=== PATIENT | male | born 1935 | race Hispanic/Latino ===

== ENCOUNTER 2018-01-09 17:44 | Emergency (ER) | payer OTHER ==
[~2018-01-09 17:44] MED LIST: ALLO100T PO; ATOR40TA71 PO; GLIM4TAB3 PO; LEVO88TA7 PO; LORA0.5T2 PO; LOSA50TA37 PO; METO-391 PO; OXYB5TAB10 PO; POTA-79 PO; PREG75 PO; SPIR25TA4 PO; TAMS0.4C32 PO; TORS20TA4 PO
[2018-01-09 18:06] LABS: BASOPHILS % (AUTO) 0.9 % (0.0-5.0); EOSINOPHILS % (AUTO) 1.1 % (0.0-8.0); HEMATOCRIT 41.8 % (42-54); LYMPHOCYTES % (AUTO) 34.7 % (21.0-51.0); MEAN CORPUSCULAR HEMOGLOBIN 29.4 pg (27.0-33.0); MEAN CORPUSCULAR VOLUME 86.3 fL (79-99); MONOCYTES % (AUTO) 9.8 % (3.0-13.0); NEUTROPHILS % (AUTO) 53.5 % (40.0-77.0); PLATELET COUNT (AUTO) 257 K/uL (130-400); RED BLOOD CELL COUNT(AUTO) 4.84 MIL/uL (4.50-6.20); RED CELL DISTRIBUTION WIDTH 15.6 % (11.0-15.5); WHITE BLOOD COUNT (AUTO) 10.9 K/uL (4.8-10.8)
[2018-01-09 18:17] LABS: CREATININE 1.1 mg/dL (0.5-1.5)
[2018-01-09 18:19] LABS: INR 1.05 (0.85-1.15); PARTIAL THROMBOPLASTIN TIME 28.6 SEC (26.3-35.5)
[2018-01-09 18:32] LABS: ALBUMIN 3.4 g/dL (3.5-5.0); BILIRUBIN,TOTAL 0.9 mg/dL (0.2-1.0); CREATINE KINASE MB 1.5 ng/mL (0.5-3.6); TOTAL PROTEIN, SERUM 8.3 g/dL (6.0-8.3)
[2018-01-09] MEDS ORDERED: IOPAMIDOL-370 75 ML VIAL IV ONE (18:33)
[2018-01-09 19:38] LABS: APPEARANCE,URINE Clear (CLEAR); BILIRUBIN,URINE Negative (NEGATIVE); COLOR,URINE Yellow (YELLOW); GLUCOSE, URINE (UA) Negative (NEGATIVE); KETONES,URINE 15 mg/dL (NEGATIVE); LEUKOCYTE ESTERASE ,URINE Negative (NEGATIVE); NITRATE,URINE Negative (NEGATIVE); OCCULT BLOOD,URINE Trace (NEGATIVE); PH,URINE 6.5 (5.0-8.0); PROTEIN,URINE 300 (NEGATIVE)
[2018-01-09 20:04] LABS: BACTERIA,URINE Rare /HPF (None Seen); RBC,URINE 0-1 /HPF (0-1); WBC,URINE None Seen /HPF (0-1); YEAST,URINE BUDDING None Seen /HPF (None Seen)
[2018-01-09] MEDS ORDERED: SODIUM CHLORIDE 0.9% 1000ML 1,000 ML IV ONE (20:04)
[2018-01-09 20:05] LABS: MUCUS,URINE Few LPF (None Seen); SQUAMOUS EPITHELIAL CELL,UR Rare /LPF (0-2)
== END 2018-01-09 22:05 | disposition home or self-care (01) ==
LOC: EDH 17:44
DX: R10.9 Unspecified abdominal pain (principal); R53.1 Weakness; I10 Essential (primary) hypertension; E11.9 Type 2 diabetes mellitus without complications; I25.10 Atherosclerotic heart disease of native coronary artery without angina pectoris; Z95.1 Presence of aortocoronary bypass graft; Z98.890 Other specified postprocedural states
CPT/HCPCS: 36415; 71045; 74177; 80053; 81001; 82550; 82553; 83874; 84484; 85025; 85610; 85730; 93005; 94761; 96360; 99285; J7030; Q9967

== ENCOUNTER → 2018-02-28 | Outpatient (CLI) | payer OTHER ==
[~2018-02-28] MED LIST changes: -SPIR25TA4 PO; +SPIR25TA6 PO
== END | disposition home or self-care (01) ==
LOC: RAH 08:41
PROVIDERS: ATTEND Internal Medicine
DX: K80.20 Calculus of gallbladder without cholecystitis without obstruction (principal); N28.1 Cyst of kidney, acquired; Z95.828 Presence of other vascular implants and grafts
CPT/HCPCS: 76700; 78264; A9541

== ENCOUNTER 2018-11-15 05:30 | Day surgery (SDC) | payer OTHER ==
[~2018-11-15] VITALS: Ht 162.6 cm; Wt 79.9 kg
[~2018-11-15 05:30] MED LIST changes: +BISA1POW MC; +ERGO500014 PO; +ESOM40CA54 PO; +FISH1CAP49 PO; +HYDR-4381 PO; -LOSA50TA37 PO; +LOSA50TA64 PO; +NAPR220C15 PO; -POTA-79 PO; -PREG75 PO; +SUCR1TAB2 PO
[2018-11-15] MEDS ORDERED: SODIUM CHLORIDE 0.9% 1000ML 1,000 ML IV ONE (05:51)
[2018-11-15 06:21] VITALS: BP 117/65
[2018-11-15] MEDS ORDERED: PROPOFOL 10 MG/ML 20ML VIAL IV ONE (07:16)
[2018-11-15 07:31] VITALS: BP 124/67
[2018-11-15 07:37] VITALS: BP 128/65
[2018-11-15 07:42] VITALS: BP 113/57
[2018-11-15 07:48] VITALS: BP 116/60
== END 2018-11-15 08:05 | disposition home or self-care (01) ==
LOC: ENDO 05:30 → DAH 05:30 → ENDO 08:05
PROVIDERS: ATTEND Internal Medicine
DX: K29.50 Unspecified chronic gastritis without bleeding (principal); I10 Essential (primary) hypertension; E78.00 Pure hypercholesterolemia, unspecified; I25.10 Atherosclerotic heart disease of native coronary artery without angina pectoris; F41.9 Anxiety disorder, unspecified; F32.9 Major depressive disorder, single episode, unspecified; E11.9 Type 2 diabetes mellitus without complications; Z95.5 Presence of coronary angioplasty implant and graft; Z98.890 Other specified postprocedural states; Z79.899 Other long term (current) drug therapy; Z68.29 Body mass index [BMI] 29.0-29.9, adult; K59.04 Chronic idiopathic constipation; I48.91 Unspecified atrial fibrillation
CPT/HCPCS: 43239; 82948; 88305; 93005; A4606; J2704; J7030

== ENCOUNTER 2018-12-22 05:30 | Day surgery (SDC) | payer OTHER ==
[2018-12-22] VITALS (8 sets, daily range): BP systolic 90–117; BP diastolic 50–63
[~2018-12-22] VITALS: Ht 160 cm; Wt 75.7 kg
[~2018-12-22 05:30] MED LIST changes: -BISA1POW MC; -ESOM40CA54 PO; -FISH1CAP49 PO; +LOVA20TA3 PO; -NAPR220C15 PO; -SPIR25TA6 PO
[2018-12-22] MEDS ORDERED: SODIUM CHLORIDE 0.9% 1000ML 1,000 ML IV ONE (05:52)
--- NOTE | 2018-12-22 07:14 | NUR ---
PATIENT IS HARD OF HEARING. Addendum: 12/22/18 at 0714 by CRESCENCIO FOX RN RN Amended: Links added.
[2018-12-22] MEDS ORDERED: GLYCOPYRROLATE 0.2 MG/ML 5 ML VIAL ONE (08:38)
--- NOTE | 2018-12-22 09:06 | NUR ---
Update Patient's glucose level was 74mg/dl. Patient was given a four ounce apple juice and a packet of saltine crackers that were consumed. Patient denies diaphoresis, nausea, or dizziness.
--- NOTE | 2018-12-22 09:58 | NUR ---
update Patient states he has abdominal discomfort from bloating. Addendum: 12/22/18 at 0931 by CRESCENCIO FOX RN RN Amended: Links added.
== END 2018-12-22 09:46 | disposition home or self-care (01) ==
LOC: ENDO 05:30 → DAH 05:30 → ENDO 09:46
PROVIDERS: ATTEND Internal Medicine Gastroenterology
DX: D12.3 Benign neoplasm of transverse colon (principal); D12.0 Benign neoplasm of cecum; D12.5 Benign neoplasm of sigmoid colon; K57.30 Diverticulosis of large intestine without perforation or abscess without bleeding; I10 Essential (primary) hypertension; E78.00 Pure hypercholesterolemia, unspecified; I25.10 Atherosclerotic heart disease of native coronary artery without angina pectoris; F41.9 Anxiety disorder, unspecified; F32.9 Major depressive disorder, single episode, unspecified; E11.9 Type 2 diabetes mellitus without complications; Z95.5 Presence of coronary angioplasty implant and graft; Z79.899 Other long term (current) drug therapy; Z98.890 Other specified postprocedural states; K29.50 Unspecified chronic gastritis without bleeding; K21.0 Gastro-esophageal reflux disease with esophagitis; Z95.1 Presence of aortocoronary bypass graft; I21.3 ST elevation (STEMI) myocardial infarction of unspecified site
CPT/HCPCS: 45385; 82948; 88305; 93005; A4606; J3490; J7030

== ENCOUNTER → 2019-04-18 | Outpatient (CLI) | payer OTHER ==
[~2019-04-18] MED LIST changes: -ATOR40TA71 PO
== END | disposition home or self-care (01) ==
LOC: SHCH 10:46
PROVIDERS: ATTEND Internal Medicine Cardiovascular Disease
DX: I08.3 Combined rheumatic disorders of mitral, aortic and tricuspid valves (principal); I11.9 Hypertensive heart disease without heart failure; I48.2 Chronic atrial fibrillation
CPT/HCPCS: 93306

== ENCOUNTER 2019-04-20 14:33 | Emergency (ER) | payer OTHER ==
[2019-04-20 15:40] LABS: EOSINOPHILS % (AUTO) 0.8 % (0.0-8.0); HEMATOCRIT 43.5 % (42-54); LYMPHOCYTES % (AUTO) 19.9 % (21.0-51.0); MEAN CORPUSCULAR HGB CONC 33.1 g/dL (32.0-36.0); MEAN CORPUSCULAR VOLUME 90.6 fL (79-99); MONOCYTES % (AUTO) 8.5 % (3.0-13.0); NEUTROPHILS % (AUTO) 69.8 % (40.0-77.0); PLATELET COUNT (AUTO) 231 K/uL (130-400); RED CELL DISTRIBUTION WIDTH 15.9 % (11.0-15.5); WHITE BLOOD COUNT (AUTO) 10.3 K/uL (4.8-10.8)
[2019-04-20 15:54] LABS: CREATININE 1.2 mg/dL (0.5-1.5); POTASSIUM 3.4 mmol/L (3.5-5.1)
[2019-04-20 15:56] LABS: INR 0.99 (0.85-1.15); PARTIAL THROMBOPLASTIN TIME 28.6 SEC (26.3-35.5); PROTHROMBIN TIME 10.4 SEC (9.6-11.6)
[2019-04-20 16:00] LABS: BILIRUBIN,TOTAL 0.8 mg/dL (0.2-1.0); TOTAL PROTEIN, SERUM 7.1 g/dL (6.0-8.3)
[2019-04-20] MEDS ORDERED: IOHEXOL-350 75 ML VIAL IV ONE (16:04)
[2019-04-20] MEDS ORDERED: SODIUM CHLORIDE 0.9% 1000ML 1,000 ML IV ONE (16:08)
[2019-04-20] MEDS ORDERED: ONDANSETRON HCL 4 MG/2 ML VIAL ONE (17:51)
[2019-04-20] MEDS ORDERED: KETOROLAC TROMETHAMINE 15MG/ML ONE (17:51)
== END 2019-04-20 19:02 | disposition home or self-care (01) ==
LOC: EDH 14:33
DX: K80.20 Calculus of gallbladder without cholecystitis without obstruction (principal); R42 Dizziness and giddiness; I10 Essential (primary) hypertension; E11.9 Type 2 diabetes mellitus without complications; K21.9 Gastro-esophageal reflux disease without esophagitis; E07.9 Disorder of thyroid, unspecified; I25.10 Atherosclerotic heart disease of native coronary artery without angina pectoris; Z95.1 Presence of aortocoronary bypass graft; Z87.891 Personal history of nicotine dependence; Z79.899 Other long term (current) drug therapy
CPT/HCPCS: 36415; 71045; 74177; 80053; 82550; 84484; 85025; 85610; 85730; 93005; 96360; 99285; J7030; Q9967; J1885; J2405

== ENCOUNTER → 2019-05-01 | Outpatient (CLI) | payer OTHER | END | disposition home or self-care (01) | LOC: RAH 08:17 | PROVIDERS: ATTEND Family Medicine | DX: R13.13 Dysphagia, pharyngeal phase (principal); E11.9 Type 2 diabetes mellitus without complications; K57.00 Diverticulitis of small intestine with perforation and abscess without bleeding; K21.9 Gastro-esophageal reflux disease without esophagitis; I10 Essential (primary) hypertension; E78.00 Pure hypercholesterolemia, unspecified; I25.10 Atherosclerotic heart disease of native coronary artery without angina pectoris; Z95.0 Presence of cardiac pacemaker | CPT/HCPCS: G8996; G8997; G8998; 74230; 92611 ==

== ENCOUNTER → 2019-05-16 | Outpatient (CLI) | payer OTHER | END | disposition home or self-care (01) | LOC: RAH 13:37 | PROVIDERS: ATTEND Urology | DX: N28.1 Cyst of kidney, acquired (principal); R31.29 Other microscopic hematuria | CPT/HCPCS: 76770 ==

== ENCOUNTER → 2019-11-06 | Outpatient (CLI) | payer OTHER ==
[~2019-11-06] MED LIST changes: -GLIM4TAB3 PO; +GLIM4TAB36 PO; -OXYB5TAB10 PO; +OXYB5TAB15 PO
== END | disposition home or self-care (01) ==
LOC: SHCH 10:41
PROVIDERS: ATTEND Internal Medicine Cardiovascular Disease
DX: I08.0 Rheumatic disorders of both mitral and aortic valves (principal); I48.0 Paroxysmal atrial fibrillation
CPT/HCPCS: 93306

== ENCOUNTER 2020-02-18 20:24 | Inpatient (IN) | payer OTHER ==
[~2020-02-18] VITALS: Ht 165.1 cm; Wt 72.8 kg
[2020-02-18 20:52] LABS: BASOPHILS % (AUTO) 0.5 % (0.0-5.0); EOSINOPHILS % (AUTO) 0.8 % (0.0-8.0); LYMPHOCYTES % (AUTO) 20.5 % (21.0-51.0); MEAN CORPUSCULAR HEMOGLOBIN 31.2 pg (27.0-33.0); MEAN CORPUSCULAR HGB CONC 35.3 g/dL (32.0-36.0); MEAN CORPUSCULAR VOLUME 88.4 fL (79-99); MONOCYTES % (AUTO) 6.7 % (3.0-13.0); NEUTROPHILS % (AUTO) 70.8 % (40.0-77.0); PLATELET COUNT (AUTO) 196 K/uL (130-400); RED CELL DISTRIBUTION WIDTH 16.9 % (11.0-15.5); WHITE BLOOD COUNT (AUTO) 6.2 K/uL (4.8-10.8)
[2020-02-18 21:04] LABS: CREATININE 1.5 mg/dL (0.5-1.5)
[2020-02-18 21:05] LABS: INR 1.16 (0.85-1.15); PARTIAL THROMBOPLASTIN TIME 31.5 SEC (26.3-35.5); PROTHROMBIN TIME 12.5 SEC (9.6-11.6)
[2020-02-18 21:08] LABS: ALBUMIN 3.2 g/dL (3.5-5.0); BILIRUBIN,TOTAL 1.2 mg/dL (0.2-1.0); TOTAL PROTEIN, SERUM 7.2 g/dL (6.0-8.3)
[2020-02-18 21:18] LABS: B-TYPE NATRIURETIC PEPTIDE 670 pg/mL (0-100)
[2020-02-18] MEDS ORDERED: FUROSEMIDE 10 MG/ML 2ML VIAL ONE (21:29)
[2020-02-18 21:39] LABS: APPEARANCE,URINE Clear (CLEAR); BILIRUBIN,URINE Negative (NEGATIVE); COLOR,URINE Yellow (YELLOW); GLUCOSE, URINE (UA) Negative (NEGATIVE); KETONES,URINE Negative (NEGATIVE); LEUKOCYTE ESTERASE ,URINE Negative (NEGATIVE); NITRATE,URINE Negative (NEGATIVE); OCCULT BLOOD,URINE Negative (NEGATIVE); PROTEIN,URINE Negative (NEGATIVE)
[2020-02-18 21:47] LABS: AMPHET/METH SCREEN,URINE NEGATIVE (NEGATIVE); BARBITURATE SCREEN, URINE NEGATIVE (NEGATIVE); BENZODIAZEPINES SCREEN,URINE NEGATIVE (NEGATIVE); CANNABINOID SCREEN,URINE NEGATIVE (NEGATIVE); COCAINE SCREEN,URINE NEGATIVE (NEGATIVE); OPIATE SCREEN,URINE NEGATIVE (NEGATIVE); PHENCYCLIDINE SCREEN,URINE NEGATIVE (NEGATIVE)
[2020-02-18] MEDS ORDERED: ACETAMINOPHEN 325 MG TAB PO PRN (23:45)
[2020-02-18] MEDS ORDERED: ONDANSETRON HCL 4 MG/2 ML VIAL IVP PRN (23:45)
[2020-02-19] VITALS (7 sets, daily range): BP systolic 91–106; BP diastolic 58–85
--- NOTE | 2020-02-19 02:14 | NUR ---
ARRIVE ON FLOOR PT ARRIVED ON FLOOR. PT A/A/OX3. TELE MONITOR PLACED. HAS A RIGHT SKIN TEAR 3 CM X 1 CM ON LATERAL UE. PT STATES HE LOST BALANCE AT HOME AND FELL OFF THE BED. SAYS HE FREQUENTLY GETS DIZZY OR LOSES HIS BALANCE FREQUENTLY. PT SAYS HE LIVES ALONE AND HAS DIFFICULTY WITH GETTING UP POST FALLS AND ALSO HAS LOST HIS APPETITE AND DOES NOT EAT MUCH HE SHOULD. PT DID NOT BRING HOME MEDS AND CAN NOT RECALL WHAT MEDICATIONS HE TAKES- HIS DAUGHTER WILL BRING MEDS IN THE MORNING. BED LOCKED IN THE LOWEST POSITION, CALL LIGHT WITHIN REACH. DOOR LEFT OPEN TO CONTINUE MONITORING FROM NURSE'S STATION.
[2020-02-19] MEDS ORDERED: IPRATROPIUM/ALBUTEROL SULFATE 3 ML SOLUTION IH PRN (04:15)
[2020-02-19] MEDS ORDERED: FUROSEMIDE 10 MG/ML 10ML VIAL IVP SCH (06:00)
--- NOTE | 2020-02-19 08:00 | NUR ---
AM SHIFT ASSESSMENT.
--- NOTE | 2020-02-19 11:52 | NUR ---
DCP:HOME Sw spoke to pt's step son/ person to notify JOSH MANZO [phone]. Josh reports that pt's dies in Dec 2019 and pt lives at home alone. Pt's daughter was working on applying for provider services for pt. Pt completes ALDS slowly, but on his own, drives, has reg.walker, rollator, shower chair, bsc and nebulizer, no HH services. PCP is Dr Pierce and [facility] pharm of choice. Per Josh, pt will want to dc home. CM to follow and assist as needed Addendum: 02/19/20 at 1156 by MANASA VELAZQUEZ Amended: Links added.
[2020-02-19] MEDS: FUROSEMIDE 10 MG/ML 2ML VIAL IVP SCH ×2 (12:48→17:40)
--- NOTE | 2020-02-19 13:26 | NUR ---
RD NOTIFICATION - CANCELLATION VERIFIED WITH RN.
[2020-02-19] MEDS ORDERED: POTASSIUM CHLORIDE 20MEQ/100ML 100 ML IV PRN ×2 (13:30→17:00)
[2020-02-19] MEDS ORDERED: LIDOCAINE HCL-MPF 1% 2ML VIAL IV PRN ×2 (13:30→17:00)
[2020-02-19] MEDS ORDERED: POTASSIUM CHLORIDE 20 MEQ ERTAB PO PRN ×2 (13:30→17:00)
--- NOTE | 2020-02-19 15:30 | NUR ---
RIYA GALAVIZ SLAG MOTOR OPERATOR WITH BENCHMARK IN TO SEE PT. ORDERS ENTERED.ATTEMPTED TO GET PEDAL PULSES WITH DOPPLER BUT UNABLE TO DUE TO 4 PLUS EDEMA NOTED TO LT LOWER LEG AND COLD TPO TOUCH, SOME DISCOLORATION NOTED AND ACKNOWLEDGE BY SLAG MOTOR OPERATOR
[2020-02-19] MEDS ORDERED: DEXTROSE 50%-WATER 50 ML DISP.SYRIN IV PRN (16:30)
[2020-02-19] MEDS ORDERED: GLUCAGON 1MG KIT 1 MG ML IM PRN (16:30)
[2020-02-19] MEDS ORDERED: POTASSIUM CHLORIDE 10% ELIXIR 20 MEQ/15 ML UDCUP PO PRN (17:00)
[2020-02-19] MEDS ORDERED: MAGNESIUM 2GM PREMIX 50ML 50 ML IV PRN (17:00)
[2020-02-19] MEDS: SUCRALFATE 1 GM TABLET PO SCH ×2 (17:40→19:58)
[2020-02-19] MEDS: ATORVASTATIN CALCIUM 10 MG TABLET PO SCH (19:57)
[2020-02-19] MEDS: OXYBUTYNIN CHLORIDE 5 MG TABLET PO SCH (19:57)
--- NOTE | 2020-02-19 22:10 | NUR ---
STATUS Pt lying in bed,aao x 3.denies chest pain or sob.Bed bath done per STATION ENGINEER CHIEF.Pt appears sad,he said his just in Dec.Fall precautions in progress.
--- NOTE | 2020-02-19 22:57 | NUR ---
FALL PRECAUTION Pt does not call for assistance,tries to sit up to urinate on the urinal.Bed alarm on.Pt reinstructed re use of call light,verbalized,"I need to be alone".
[2020-02-20] VITALS (12 sets, daily range): BP systolic 79–102; BP diastolic 50–69
[2020-02-20] MEDS: FUROSEMIDE 10 MG/ML 2ML VIAL IVP SCH ×3 (00:01→13:02)
[2020-02-20 05:27] LABS: HEMATOCRIT 38.1 % (42-54); MEAN CORPUSCULAR HEMOGLOBIN 31.5 pg (27.0-33.0); MEAN CORPUSCULAR HGB CONC 36.2 g/dL (32.0-36.0); PLATELET COUNT (AUTO) 192 K/uL (130-400); RED BLOOD CELL COUNT(AUTO) 4.38 MIL/uL (4.50-6.20); RED CELL DISTRIBUTION WIDTH 16.9 % (11.0-15.5); WHITE BLOOD COUNT (AUTO) 6.1 K/uL (4.8-10.8)
[2020-02-20 05:28] LABS: BASOPHILS % (AUTO) 0.7 % (0.0-5.0); EOSINOPHILS % (AUTO) 2.9 % (0.0-8.0); LYMPHOCYTES % (AUTO) 30.1 % (21.0-51.0); MONOCYTES % (AUTO) 7.2 % (3.0-13.0); NEUTROPHILS % (AUTO) 58.4 % (40.0-77.0)
[2020-02-20 05:47] LABS: ALBUMIN 2.7 g/dL (3.5-5.0); B-TYPE NATRIURETIC PEPTIDE 815 pg/mL (0-100); BILIRUBIN,TOTAL 0.8 mg/dL (0.2-1.0); CREATININE 1.2 mg/dL (0.5-1.5); MAGNESIUM 2.3 mg/dL (1.80-2.40); PHOSPHORUS 3.1 mg/dL (2.5-4.9); POTASSIUM 3.2 mmol/L (3.5-5.1); THYROID STIMULATING HORMONE 20.76 uIU/mL (0.36-3.74); TOTAL PROTEIN, SERUM 6.1 g/dL (6.0-8.3)
[2020-02-20] MEDS: POTASSIUM CHLORIDE 10% ELIXIR 20 MEQ/15 ML UDCUP PO PRN ×3 (06:18→20:30)
[2020-02-20] MEDS ORDERED: LEVOTHYROXINE 88 MCG TABLET PO SCH (06:30)
--- NOTE | 2020-02-20 08:40 | NUR ---
Ken Pineda aware of case re; chf. Addendum: 02/20/20 at 1533 by AAMIR GONZALEZ RN RN and LACY.
--- NOTE | 2020-02-20 09:00 | NUR ---
DYSPHAGIA GUIDOAL COMPLETED NO S/S OF ASPIRATION. RECOMMEND REGULAR SOLIDS, THIN LIQUIDS, PILLS WHOLE WITH LIQUIDS. Pt STATES TO HAVE NO APPETITE. Pt EXPRESSED HE WOULD LIKE TO HAVE A PROVIDER WHEN HE GOES HOME SINCE HE LIVES ALONE. HALAL MEAT PACKER COORDINATED WITH NURSE RUTLEDGE. Addendum: 02/20/[address]BECCA CASTILLO Amended: Links added.
[2020-02-20] MEDS: SUCRALFATE 1 GM TABLET PO SCH ×4 (09:13→20:19)
[2020-02-20] MEDS: TAMSULOSIN HCL 0.4 MG CAP.ER.24H PO SCH (09:13)
[2020-02-20] MEDS: OXYBUTYNIN CHLORIDE 5 MG TABLET PO SCH ×2 (09:13→20:30)
--- NOTE | 2020-02-20 19:13 | NUR ---
RECD ORDER FOR [facility]F OF FAMILY CHOICE. REQUESTED ORDER FOR SNF OF FAMILY CHOICE EARLIER TO DAY. ORDER DEFEREED UNTIL AFTER DAVID CHRISTIANSON SPOKE TO TALI. CM ALSO CLARIFIED SNF OF CHOICE WITH FAMILY AND PATIENT. AND UPDATED FACE SHEET PER TALI WISHES AGNIESZKA INELSON . REFERRAL TO BE SENT, DEONTE FROM [place] GIVEN HEADS UP Addendum: 02/20/20 at 1915 by OZ RAO RN CM Amended: Links added.
[2020-02-20] MEDS: MIDODRINE HCL 5 MG TABLET PO SCH (20:30)
[2020-02-20] MEDS: ATORVASTATIN CALCIUM 10 MG TABLET PO SCH (20:30)
[2020-02-21] VITALS (14 sets, daily range): BP systolic 76–99; BP diastolic 49–68
[2020-02-21 04:52] LABS: CREATININE 1.2 mg/dL (0.5-1.5); MAGNESIUM 1.9 mg/dL (1.80-2.40); POTASSIUM 3.9 mmol/L (3.5-5.1)
[2020-02-21] MEDS: LEVOTHYROXINE 50 MCG TABLET PO SCH (05:33)
[2020-02-21] MEDS: MAGNESIUM 2GM PREMIX 50ML 50 ML IV PRN (05:38)
[2020-02-21] MEDS: TORSEMIDE 20 MG TAB PO SCH (08:53)
[2020-02-21] MEDS: OXYBUTYNIN CHLORIDE 5 MG TABLET PO SCH ×2 (09:00→21:31)
[2020-02-21] MEDS: TAMSULOSIN HCL 0.4 MG CAP.ER.24H PO SCH (09:01)
[2020-02-21] MEDS: SUCRALFATE 1 GM TABLET PO SCH ×4 (09:01→21:31)
[2020-02-21] MEDS: MIDODRINE HCL 5 MG TABLET PO SCH (09:01)
--- NOTE | 2020-02-21 11:17 | NUR ---
[id number] patient signed NAYLOR Letter, I faxed NAYLOR Letter to [phone] and placed in chart under consent tab
--- NOTE | 2020-02-21 13:00 | NUR ---
CM Note: [facility] approval CM spoke to Keysha hurley/[facility], pt has approval. EMS arranged and faxed for today, primary nurse aware to call [facility] once pt ready to DC. Primary nurse aware. CM to cont to follow up.
--- NOTE | 2020-02-21 13:01 | NUR ---
RD NOTIFICATION Pt admitted with Acute Heart Failure, FTT. Pt with Heart Healthy diet order in place, poor PO intake. Also noted moderate fluid retention (BLE 4+/BUE 2+ edema). Pt with elevated Chol (217), LDL (165) levels. Recommend 1500mL Fluid Restriction, secondary to fluid retention. Recommend 60mL ProMod QD for nutritional supplementation. Recommend Low Fat diet order. RD to continue to monitor. Please notify as additional nutrition concerns arise. Thank you. Addendum: 02/21/20 at [address] Amended: Links added.
[2020-02-21] MEDS ORDERED: MIDODRINE HCL 5 MG TABLET PO SCH (14:00)
--- NOTE | 2020-02-21 15:11 | NUR ---
[id number] patient signed IM Letter,I faxed IM Letter to [phone] and placed in chart under consent tab.
--- NOTE | 2020-02-21 15:20 | NUR ---
REPORT TO PCCU REPORT GIVEN AND PATIENT TRANSFERRED VIA BED TO ROOM 420 FOR HIGHER LEVEL OF CARE SUPPORT. RECEIVED ORDERS FOR LOW BLOOD PRESSURE REQUIRING DOBUTAMINE DRIP ADMINISTRATION . DAUGHTER NOTIFIED OF PATIENT STATUS PRIOR TO TRANSFER AND GIVEN ROOM NUMBER AND PHONE NUMBER WHERE SHE CAN REACH FATHER.
[2020-02-21] MEDS ORDERED: DOBUTAMINE 250MG/D5 250ML 250 ML IV SCH (15:30)
[2020-02-21] MEDS: ATORVASTATIN CALCIUM 10 MG TABLET PO SCH (21:31)
[2020-02-22] VITALS (8 sets, daily range): BP systolic 77–93; BP diastolic 45–61
[2020-02-22 04:41] LABS: BASOPHILS % (AUTO) 0.5 % (0.0-5.0); EOSINOPHILS % (AUTO) 2.6 % (0.0-8.0); HEMATOCRIT 36.1 % (42-54); LYMPHOCYTES % (AUTO) 33.7 % (21.0-51.0); MEAN CORPUSCULAR HEMOGLOBIN 30.9 pg (27.0-33.0); MEAN CORPUSCULAR HGB CONC 35.2 g/dL (32.0-36.0); MEAN CORPUSCULAR VOLUME 87.8 fL (79-99); MONOCYTES % (AUTO) 7.1 % (3.0-13.0); NEUTROPHILS % (AUTO) 55.6 % (40.0-77.0); PLATELET COUNT (AUTO) 186 K/uL (130-400); RED BLOOD CELL COUNT(AUTO) 4.11 MIL/uL (4.50-6.20); RED CELL DISTRIBUTION WIDTH 17.3 % (11.0-15.5); WHITE BLOOD COUNT (AUTO) 6.5 K/uL (4.8-10.8)
[2020-02-22 04:59] LABS: ALBUMIN 2.8 g/dL (3.5-5.0); BILIRUBIN,TOTAL 0.7 mg/dL (0.2-1.0); CREATININE 1.1 mg/dL (0.5-1.5); MAGNESIUM 2.1 mg/dL (1.80-2.40); PHOSPHORUS 2.5 mg/dL (2.5-4.9); TOTAL PROTEIN, SERUM 6.2 g/dL (6.0-8.3)
[2020-02-22 05:06] LABS: B-TYPE NATRIURETIC PEPTIDE 533 pg/mL (0-100)
[2020-02-22] MEDS: LEVOTHYROXINE 50 MCG TABLET PO SCH (05:21)
[2020-02-22] MEDS: TAMSULOSIN HCL 0.4 MG CAP.ER.24H PO SCH (09:08)
[2020-02-22] MEDS: SUCRALFATE 1 GM TABLET PO SCH ×4 (09:08→20:11)
[2020-02-22] MEDS: OXYBUTYNIN CHLORIDE 5 MG TABLET PO SCH ×2 (09:08→20:14)
[2020-02-22] MEDS: TORSEMIDE 20 MG TAB PO SCH (09:08)
[2020-02-22] MEDS ORDERED: SODIUM CHLORIDE 0.9% 250 ML IV ONE (13:49)
[2020-02-22] MEDS: DOCUSATE SODIUM 100 MG CAP PO SCH (20:12)
[2020-02-22] MEDS: ATORVASTATIN CALCIUM 10 MG TABLET PO SCH (20:12)
[2020-02-22] MEDS ORDERED: DRONABINOL 2.5 MG CAP PO ONE (21:00)
--- NOTE | 2020-02-22 21:00 | NUR ---
PT ABLE TO TAKE MEDICATIONS WELL. NO DISTRESS NOTED. PT CONTINUES ON DOBUTAMINE DRIP. BP HOLDING WELL.
[2020-02-23 04:09] VITALS: BP 95/57
[2020-02-23 05:17] LABS: BASOPHILS % (AUTO) 0.5 % (0.0-5.0); EOSINOPHILS % (AUTO) 4.4 % (0.0-8.0); HEMATOCRIT 33.5 % (42-54); LYMPHOCYTES % (AUTO) 26.9 % (21.0-51.0); MEAN CORPUSCULAR HEMOGLOBIN 31.3 pg (27.0-33.0); MEAN CORPUSCULAR HGB CONC 35.8 g/dL (32.0-36.0); MEAN CORPUSCULAR VOLUME 87.5 fL (79-99); MONOCYTES % (AUTO) 7.7 % (3.0-13.0); NEUTROPHILS % (AUTO) 60.3 % (40.0-77.0); PLATELET COUNT (AUTO) 186 K/uL (130-400); RED BLOOD CELL COUNT(AUTO) 3.83 MIL/uL (4.50-6.20); RED CELL DISTRIBUTION WIDTH 16.6 % (11.0-15.5); WHITE BLOOD COUNT (AUTO) 5.9 K/uL (4.8-10.8)
[2020-02-23 05:23] LABS: POTASSIUM 3.5 mmol/L (3.5-5.1)
[2020-02-23] MEDS: LEVOTHYROXINE 50 MCG TABLET PO SCH (05:45)
[2020-02-23 05:57] LABS: B-TYPE NATRIURETIC PEPTIDE 482 pg/mL (0-100)
[2020-02-23 08:00] VITALS: BP 92/52
[2020-02-23] MEDS: SUCRALFATE 1 GM TABLET PO SCH ×4 (09:00→20:13)
[2020-02-23] MEDS ORDERED: SODIUM CHLORIDE 0.9% 250 ML IV ONE (09:14)
[2020-02-23] MEDS: TAMSULOSIN HCL 0.4 MG CAP.ER.24H PO SCH (09:16)
[2020-02-23] MEDS: OXYBUTYNIN CHLORIDE 5 MG TABLET PO SCH ×2 (09:16→20:13)
[2020-02-23] MEDS: DOCUSATE SODIUM 100 MG CAP PO SCH ×2 (09:16→20:13)
[2020-02-23 11:21] VITALS: BP 108/56
[2020-02-23 16:00] VITALS: BP 95/53
[2020-02-23 19:35] VITALS: BP 102/58
[2020-02-23] MEDS: ATORVASTATIN CALCIUM 10 MG TABLET PO SCH (20:13)
--- NOTE | 2020-02-23 21:00 | NUR ---
PT WAS INQUIRING ABOUT HAVING SON POSSIBLY VISIT HIM AT THE HOSPITAL. STATES HE NEEDS TO GIVE M[place], AND SIGN PAPERS FOR LEGAL MATTERS. ALSO MENTIONED HE HAS AN APPT WITH A MACHINE TANK OPERATOR. PT INFORMED THAT HE CAN VIDEO CHAT OR CALL FAMILY IF NEEDED. NOTIFIED HOUSE, STATED COULD POSSIBLY HAVE SHORT VISIT ARRANGED DURING THE DAY. TO UPDATE MORNING NURSE IN THE AM.
[2020-02-23 23:46] VITALS: BP_SYST 149; BP_SYST 86; BP_DIAS 55; BP_DIAS 68
[2020-02-24] MEDS: LORAZEPAM 0.5 MG TABLET PO PRN ×2 (02:51→21:07)
--- NOTE | 2020-02-24 03:00 | NUR ---
PT PULLED OUT IV. UNKNOWN TIME OF HOW LONG IT HAS BEEN PULLED OUT. NEW IV 22G LFA. DOBUTAMINE DRIP STARTED AGAIN. NO DISTRESS NOTED. PT ABLE TO SIT UP.
[2020-02-24 04:06] VITALS: BP 108/56
[2020-02-24 05:08] LABS: MAGNESIUM 1.9 mg/dL (1.80-2.40); POTASSIUM 3.5 mmol/L (3.5-5.1)
[2020-02-24] MEDS: LEVOTHYROXINE 50 MCG TABLET PO SCH (06:01)
[2020-02-24 08:00] VITALS: BP 100/59
[2020-02-24] MEDS: TAMSULOSIN HCL 0.4 MG CAP.ER.24H PO SCH (08:33)
[2020-02-24] MEDS: FUROSEMIDE 20 MG TABLET PO SCH (08:34)
[2020-02-24] MEDS: OXYBUTYNIN CHLORIDE 5 MG TABLET PO SCH ×2 (08:34→21:07)
[2020-02-24] MEDS: DOCUSATE SODIUM 100 MG CAP PO SCH ×2 (08:34→21:07)
[2020-02-24] MEDS: POTASSIUM CHLORIDE 10% ELIXIR 20 MEQ/15 ML UDCUP PO PRN ×2 (08:35→10:27)
[2020-02-24] MEDS: SUCRALFATE 1 GM TABLET PO SCH ×4 (08:35→21:07)
[2020-02-24] MEDS: MAGNESIUM 2GM PREMIX 50ML 50 ML IV PRN (08:47)
[2020-02-24] MEDS: DOBUTAMINE 250MG/D5 250ML 250 ML IV SCH (10:45)
[2020-02-24 11:00] VITALS: BP 104/61
[2020-02-24 16:00] VITALS: BP 97/53
[2020-02-24 19:29] VITALS: BP 83/65
[2020-02-24] MEDS: ATORVASTATIN CALCIUM 10 MG TABLET PO SCH (21:07)
--- NOTE | 2020-02-24 22:00 | NUR ---
DRESSING CHANGED TO WOUNDS ON RIGHT FOREARM. SKINS TEARS THAT OCCURRED WHEN BEING TRANSFERRED BY EMS.
[2020-02-25] VITALS (7 sets, daily range): BP systolic 86–105; BP diastolic 53–68
[2020-02-25] MEDS: LEVOTHYROXINE 50 MCG TABLET PO SCH (05:47)
--- NOTE | 2020-02-25 07:40 | NUR ---
ASSESSMENT ENCOUNTERED PT A&OX3 BUT FORGETFUL, CALM COOPERATIVE AND DOES NOT APPEAR TO BE IN ANY DISTRESS NOR ANY NEURO DEFICITS PRESENT. PT DENIES PAIN, SOB, NAUSEA BUT DOES C/O LOWER EXTREMITY WEAKNESS AND DYSPNEA ON EXERTION. PT WAS ABLE TO STAND ON SCALE LONG ENOUGH FOR WEIGHT DOCUMENTATION BUT KNEES BUCKLE AND PT SAT BACK ON BED. CALL LIGHT WITHIN REACH.
[2020-02-25] MEDS: DOBUTAMINE 250MG/D5 250ML 250 ML IV SCH (07:45)
[2020-02-25] MEDS: ENOXAPARIN SODIUM 40 MG/0.4 ML SYRINGE SQ SCH (08:12)
[2020-02-25] MEDS: OXYBUTYNIN CHLORIDE 5 MG TABLET PO SCH ×2 (08:12→20:25)
[2020-02-25] MEDS: FUROSEMIDE 20 MG TABLET PO SCH (08:12)
[2020-02-25] MEDS: DOCUSATE SODIUM 100 MG CAP PO SCH ×2 (08:12→20:24)
[2020-02-25] MEDS: TAMSULOSIN HCL 0.4 MG CAP.ER.24H PO SCH (08:12)
[2020-02-25] MEDS: SUCRALFATE 1 GM TABLET PO SCH ×4 (09:00→20:24)
[2020-02-25 11:12] LABS: POTASSIUM 3.3 mmol/L (3.5-5.1)
[2020-02-25] MEDS: ATORVASTATIN CALCIUM 10 MG TABLET PO SCH (20:24)
[2020-02-26] VITALS (8 sets, daily range): BP systolic 85–113; BP diastolic 47–64
[2020-02-26] MEDS: DOBUTAMINE 250MG/D5 250ML 250 ML IV SCH (03:18)
[2020-02-26 04:58] LABS: BASOPHILS % (AUTO) 0.6 % (0.0-5.0); EOSINOPHILS % (AUTO) 3.4 % (0.0-8.0); HEMATOCRIT 36.7 % (42-54); MEAN CORPUSCULAR HEMOGLOBIN 31.4 pg (27.0-33.0); MEAN CORPUSCULAR HGB CONC 35.1 g/dL (32.0-36.0); MEAN CORPUSCULAR VOLUME 89.3 fL (79-99); MONOCYTES % (AUTO) 10.6 % (3.0-13.0); NEUTROPHILS % (AUTO) 64.1 % (40.0-77.0); PLATELET COUNT (AUTO) 156 K/uL (130-400); RED BLOOD CELL COUNT(AUTO) 4.11 MIL/uL (4.50-6.20); RED CELL DISTRIBUTION WIDTH 16.7 % (11.0-15.5); WHITE BLOOD COUNT (AUTO) 6.2 K/uL (4.8-10.8)
[2020-02-26 05:16] LABS: CREATININE 0.9 mg/dL (0.5-1.5); POTASSIUM 3.8 mmol/L (3.5-5.1)
--- NOTE | 2020-02-26 06:00 | NUR ---
Patient alert and oriented. Denies chest pain and sob. BP tolerating drip. Pitting edema to BLE.
[2020-02-26] MEDS: LEVOTHYROXINE 50 MCG TABLET PO SCH (06:27)
[2020-02-26] MEDS: POTASSIUM CHLORIDE 10% ELIXIR 20 MEQ/15 ML UDCUP PO PRN (06:27)
--- NOTE | 2020-02-26 07:30 | NUR ---
ASSESSMENT ENCOUNTERED PT A&OX3 BUT FORGETFUL, CALM COOPERATIVE AND DOES NOT APPEAR TO BE IN ANY DISTRESS NOR ANY NEURO DEFICITS PRESENT. PT DENIES PAIN, SOB, NAUSEA BUT DOES C/O LOWER EXTREMITY WEAKNESS AND DYSPNEA ON EXERTION. PT WAS ABLE TO STAND AND PIVOT TO CHAIR, CALL LIGHT WITHIN REACH.
[2020-02-26] MEDS: TAMSULOSIN HCL 0.4 MG CAP.ER.24H PO SCH (08:28)
[2020-02-26] MEDS: OXYBUTYNIN CHLORIDE 5 MG TABLET PO SCH ×2 (08:28→21:41)
[2020-02-26] MEDS: DOCUSATE SODIUM 100 MG CAP PO SCH ×2 (08:28→21:41)
[2020-02-26] MEDS: ENOXAPARIN SODIUM 40 MG/0.4 ML SYRINGE SQ SCH (09:00)
[2020-02-26] MEDS: SUCRALFATE 1 GM TABLET PO SCH ×4 (09:00→21:42)
[2020-02-26] MEDS: FUROSEMIDE 20 MG TABLET PO SCH (12:58)
--- NOTE | 2020-02-26 19:00 | NUR ---
SPOKE WITH DAUGHTER BETH LEVIN WHOM IS EMPLOYED BY [employer] WOULD LIKE TO SPEAK WITH NANCY VELAZQUEZ REGARDING PALLIATIVE CARE
[2020-02-26] MEDS: ATORVASTATIN CALCIUM 10 MG TABLET PO SCH (21:41)
[2020-02-26] MEDS: LORAZEPAM 0.5 MG TABLET PO PRN (21:42)
[2020-02-27 03:31] VITALS: BP 91/62
[2020-02-27] MEDS: LEVOTHYROXINE 50 MCG TABLET PO SCH (06:20)
[2020-02-27 07:30] VITALS: BP 108/59
[2020-02-27] MEDS: SUCRALFATE 1 GM TABLET PO SCH ×4 (08:56→20:51)
[2020-02-27] MEDS: TAMSULOSIN HCL 0.4 MG CAP.ER.24H PO SCH (08:57)
[2020-02-27] MEDS: DOCUSATE SODIUM 100 MG CAP PO SCH ×2 (08:57→20:48)
[2020-02-27] MEDS: FUROSEMIDE 20 MG TABLET PO SCH (08:57)
[2020-02-27] MEDS: OXYBUTYNIN CHLORIDE 5 MG TABLET PO SCH ×2 (08:57→20:48)
[2020-02-27] MEDS: ENOXAPARIN SODIUM 40 MG/0.4 ML SYRINGE SQ SCH (08:58)
[2020-02-27 11:00] VITALS: BP 86/65
--- NOTE | 2020-02-27 11:39 | NUR ---
CM Note: [facility] pending approval CM spoke to pt's son Mitul Hicks, discussed palliative care vs GIP. Son is agreeable to GIP if pt qualify, if not plan is home w/hospice. INDY signed for Mary. Faxed order, clinicals to Mary, confirmation received. Spoke to Jessi w/[facility], aware of referral, will evaluate pt. Pt pending approval for GIP vs home w/hospice. EMS filled out in case pt does not qualify for GIP, pending to be faxed w/current date, primary [facility] ready to [facility]. Primary nurse aware. CM to cont to follow up.
--- NOTE | 2020-02-27 13:38 | NUR ---
CM Note: pt does not qualify for GIP CM spoke to Jessi w/[facility], pt does not qualify for GIP at this time. Plan is home w/[facility]. Jessi currently working on OOH DNR and DME delivery at home. Pending cardio for AICD deactivation. Primary nurse aware. CM to cont to follow up.
--- NOTE | 2020-02-27 14:39 | NUR ---
RD FOLLOW UP NOTE Pt with Heart healthy, low fat, 1.5L Fluid restriction in place. No complaint of GI distress. PO intake at 50%. Nutritional supplements in place. LBM 02/24/20. Recommend continue current diet order. RD to continue to monitor. Addendum: 02/27/20 at [address] Amended: Links added.
[2020-02-27 16:00] VITALS: BP 93/60
[2020-02-27] MEDS: LORAZEPAM 0.5 MG TABLET PO PRN ×2 (17:26→20:48)
[2020-02-27 19:59] VITALS: BP 99/58
[2020-02-27] MEDS: ATORVASTATIN CALCIUM 10 MG TABLET PO SCH (20:48)
[2020-02-27 23:39] VITALS: BP 87/60
[2020-02-28 04:05] VITALS: BP 97/56
[2020-02-28] MEDS: LEVOTHYROXINE 50 MCG TABLET PO SCH (06:07)
[2020-02-28 07:30] VITALS: BP 93/62
[2020-02-28] MEDS: SUCRALFATE 1 GM TABLET PO SCH ×2 (09:00→13:00)
[2020-02-28] MEDS: ENOXAPARIN SODIUM 40 MG/0.4 ML SYRINGE SQ SCH (09:00)
[2020-02-28 11:00] VITALS: BP 97/60
--- NOTE | 2020-02-28 11:41 | NUR ---
CM Note: [facility] approval at home CM spoke to Jessi w/[facility], pt has approval. Pending DME to be delivered today. EMS arranged and faxed for today, primary nurse to call [facility] once pt ready to DC. Primary nurse aware. CM to cont to follow up.
[2020-02-28] MEDS: DOCUSATE SODIUM 100 MG CAP PO SCH (14:44)
[2020-02-28] MEDS: OXYBUTYNIN CHLORIDE 5 MG TABLET PO SCH (14:45)
[2020-02-28] MEDS: FUROSEMIDE 20 MG TABLET PO SCH (14:45)
[2020-02-28] MEDS: TAMSULOSIN HCL 0.4 MG CAP.ER.24H PO SCH (14:45)
--- NOTE | 2020-02-28 16:00 | NUR ---
DISCHARGE INSTRUCTIONS GIVEN TO PATIENT. HE WILL BE GOING HOME WITH [facility]. EQUIPMENT HAD ALREADY BEEN DELIVERED. PICTURES OF MULTIPLE SKIN TEARS WERE TAKEN AND WOUND CARE DONE. PIV REMOVED. TELE PACK REMOVED AND RETURNED. ALL BELONGINGS PACKED. PATIENT WENT HOME WITH 1 HEARING AIDE. HE SAID THAT HE LEFT THE OTHER ONE AT HOME. PATIENT WAS TAKEN HOME BY EMS.
== END 2020-02-28 15:47 | DRG 291 ==
LOC: EDH 20:24 → EDHIP 22:20 → INTOOBSV 22:20 → OBSVTOIN 22:20 → 3CH 02-19 00:13 → 3AH 02-19 00:59 → 4CH 02-21 15:33
PROVIDERS: ADMIT Internal Medicine Critical Care Medicine; ATTEND Internal Medicine Critical Care Medicine
DX: I11.0 Hypertensive heart disease with heart failure (principal); R57.0 Cardiogenic shock; I48.92 Unspecified atrial flutter; N17.9 Acute kidney failure, unspecified; I50.43 Acute on chronic combined systolic (congestive) and diastolic (congestive) heart failure; I48.0 Paroxysmal atrial fibrillation; R62.7 Adult failure to thrive; I25.10 Atherosclerotic heart disease of native coronary artery without angina pectoris; R29.6 Repeated falls; I25.5 Ischemic cardiomyopathy; E78.5 Hyperlipidemia, unspecified; E11.51 Type 2 diabetes mellitus with diabetic peripheral angiopathy without gangrene; E03.9 Hypothyroidism, unspecified; F41.9 Anxiety disorder, unspecified; I87.8 Other specified disorders of veins; M47.9 Spondylosis, unspecified; M71.20 Synovial cyst of popliteal space [Baker], unspecified knee; N40.0 Benign prostatic hyperplasia without lower urinary tract symptoms; Z51.5 Encounter for palliative care; Z96.651 Presence of right artificial knee joint; Z60.2 Problems related to living alone; H91.90 Unspecified hearing loss, unspecified ear; I95.89 Other hypotension; I34.0 Nonrheumatic mitral (valve) insufficiency; I35.0 Nonrheumatic aortic (valve) stenosis; R53.81 Other malaise; Z68.26 Body mass index [BMI] 26.0-26.9, adult; Z63.4 Disappearance and death of family member; Z79.84 Long term (current) use of oral hypoglycemic drugs; Z79.899 Other long term (current) drug therapy; Z86.79 Personal history of other diseases of the circulatory system; Z87.891 Personal history of nicotine dependence; Z91.14 Patient's other noncompliance with medication regimen; Z91.19 Patient's noncompliance with other medical treatment and regimen; Z91.81 History of falling; Z95.1 Presence of aortocoronary bypass graft; Z95.810 Presence of automatic (implantable) cardiac defibrillator; Z82.49 Family history of ischemic heart disease and other diseases of the circulatory system
CPT/HCPCS: 36415; 71045; 72110; 80048; 80053; 80061; 80305; 81003; 82550; 82948; 83036; 83605; 83735; 83880; 84100; 84443; 84480; 84484; 85025; 85610; 85730; 87040; 92610; 93005; 93306; 93356; 93925; 93970; 94664; 97039; G0378; J1250; J1650; J1940; J3475; J7050; Q0167